=== PATIENT | male | born 1945 | race Caucasian/White ===

== ENCOUNTER 2021-02-07 11:09 | Inpatient (IN) | payer MEDICARE ==
[~2021-02-07] VITALS: Ht 172.7 cm; Wt 72.6 kg
[2021-02-07] MEDS ORDERED: DEXAMETHASONE SOD PHOS 10 MG/1 ML VIAL IV ONE (11:30)
[2021-02-07 12:56] LABS: BASOPHILS % 0.1 % (0.0-1.0); HEMATOCRIT 41.6 % (38.2-49.6); HEMOGLOBIN 14.1 g/dL (14.0-18.0); LYMPHOCYTES # (AUTO) 0.6 (1.0-3.2); LYMPHOCYTES % 6.8 % (18.0-39.1); MEAN CORPUSCULAR HEMOGLOBIN 30.7 pg (28-32); MEAN CORPUSCULAR HGB CONC 33.9 g/dL (31-35); MEAN CORPUSCULAR VOLUME 90.4 fL (81-99); MONOCYTES # (AUTO) 0.8 (0.2-0.8); MONOCYTES % 8.3 % (4.4-11.3); NEUTROPHILS # (AUTO) 7.7 (2.1-6.9); PLATELET COUNT 260 x10e3/uL (140-360); RED CELL DISTRIBUTION WIDTH 12.7 % (11.7-14.4)
[2021-02-07 13:19] LABS: ALBUMIN 2.5 g/dL (3.5-5.0); ALBUMIN/GLOBULIN RATIO 0.6 (0.8-2.0); ANION GAP 19.3 mmol/L (8-16); CALCIUM 8.5 mg/dL (8.4-10.2); CREATININE, SERUM 0.7 mg/dL (0.72-1.25); POTASSIUM 4.3 mmol/L (3.5-5.1)
[2021-02-07] MEDS ORDERED: METOPROLOL TART25 MG PO (16:01)
[2021-02-07] MEDS ORDERED: NOVOLOG100 UNIT/1 SC (16:01)
[2021-02-07] MEDS ORDERED: SYMBICORT 16010.2 GM INH (16:01)
[2021-02-07] MEDS ORDERED: MONTELUKAST SOD10 MG PO (16:01)
[2021-02-07] MEDS ORDERED: FLECAINIDE ACE100 MG PO (16:01)
[2021-02-07] MEDS ORDERED: ELIQUIS5 MG PO (16:01)
[2021-02-07] MEDS ORDERED: ATORVASTATIN CA20 MG PO (16:01)
[2021-02-07 16:18] VITALS: BP 160/71
[2021-02-07 16:20] VITALS: BP 160/71
[2021-02-07] MEDS ORDERED: ACETAMINOPHEN 325 MG TAB PO PRN (19:30)
[2021-02-07] MEDS: SODIUM CHLORIDE 0.9% 1000ML 1,000 ML IV SCH (19:30)
[2021-02-07] MEDS ORDERED: ONDANSETRON HCL INJ 2MG/ML 2ML 2 MG/ML VIAL IV PRN (19:30)
[2021-02-07] MEDS: APIXABAN 5 MG TABLET PO SCH (19:30)
[2021-02-07 20:00] VITALS: BP 153/69
[2021-02-07] MEDS: INSULIN LISPRO 100 UNIT/1 ML 3ML VIAL SQ SCH (21:00)
[2021-02-07] MEDS ORDERED: ENOXAPARIN SOD INJ 40 MG/0.4 ML SYR SC SCH (21:00)
[2021-02-07] MEDS: MONTELUKAST SODIUM 10 MG TAB PO SCH (21:00)
[2021-02-07] MEDS: FLECAINIDE ACETATE 100 MG TAB PO SCH (21:00)
[2021-02-07] MEDS: METOPROLOL TARTRATE 25 MG TAB PO SCH (21:00)
[2021-02-07] MEDS: ATORVASTATIN 20 MG TAB PO SCH (21:00)
[2021-02-07 22:23] VITALS: BP 153/69
[2021-02-08] VITALS (7 sets, daily range): BP systolic 112–152; BP diastolic 63–80
[2021-02-08] MEDS: SODIUM CHLORIDE 0.9% 1000ML 1,000 ML IV SCH (04:28)
[2021-02-08] MEDS: APIXABAN 5 MG TABLET PO SCH ×2 (08:16→19:30)
[2021-02-08] MEDS: DEXAMETHASONE 4 MG TAB PO SCH (08:52)
[2021-02-08] MEDS: INSULIN LISPRO 100 UNIT/1 ML 3ML VIAL SQ SCH ×4 (08:52→20:29)
[2021-02-08] MEDS: BUDESONIDE/FORMOTEROL 160/4.5MCG INHALER INH SCH (08:52)
[2021-02-08] MEDS: FLECAINIDE ACETATE 100 MG TAB PO SCH ×2 (08:53→20:29)
[2021-02-08] MEDS: METOPROLOL TARTRATE 25 MG TAB PO SCH ×2 (08:53→20:29)
[2021-02-08 11:18] LABS: BASOPHILS % 0.1 % (0.0-1.0); HEMOGLOBIN 12.9 g/dL (14.0-18.0); LYMPHOCYTES # (AUTO) 0.5 (1.0-3.2); LYMPHOCYTES % 4.3 % (18.0-39.1); MEAN CORPUSCULAR HEMOGLOBIN 30.1 pg (28-32); MEAN CORPUSCULAR HGB CONC 33.9 g/dL (31-35); MEAN CORPUSCULAR VOLUME 88.6 fL (81-99); MONOCYTES # (AUTO) 0.7 (0.2-0.8); MONOCYTES % 6.1 % (4.4-11.3); NEUTROPHILS # (AUTO) 9.8 (2.1-6.9); NEUTROPHILS % 88.7 % (38.7-80.0); PLATELET COUNT 272 x10e3/uL (140-360); RED BLOOD COUNT 4.29 x10e6/uL (4.3-5.7); RED CELL DISTRIBUTION WIDTH 12.6 % (11.7-14.4)
[2021-02-08] MEDS: DOXYCYCLINE HYCLATE TABLET 100 MG TAB PO SCH ×2 (11:19→17:17)
[2021-02-08 11:49] LABS: ANION GAP 14.8 mmol/L (8-16); CALCIUM 7.9 mg/dL (8.4-10.2); CREATININE, SERUM 0.68 mg/dL (0.72-1.25); MAGNESIUM 1.9 MG/DL (1.3-2.1); POTASSIUM 3.8 mmol/L (3.5-5.1)
[2021-02-08] MEDS ORDERED: REMDESIVIR 200MG 200 MG IV SCH (15:45)
[2021-02-08] MEDS ORDERED: REMDESIVIR 200MG 200 MG in SODIUM CHLORIDE 0.9% 100 ML IV ONE (16:30)
[2021-02-08] MEDS: ASCORBIC ACID 500 MG TAB PO SCH (17:17)
[2021-02-08] MEDS: ATORVASTATIN 20 MG TAB PO SCH (20:28)
[2021-02-08] MEDS: MONTELUKAST SODIUM 10 MG TAB PO SCH (20:29)
[2021-02-09] VITALS (9 sets, daily range): BP systolic 117–149; BP diastolic 66–90
[2021-02-09 06:31] LABS: BASOPHILS % 0.2 % (0.0-1.0); HEMOGLOBIN 13.1 g/dL (14.0-18.0); LYMPHOCYTES # (AUTO) 0.7 (1.0-3.2); LYMPHOCYTES % 5.3 % (18.0-39.1); MEAN CORPUSCULAR HGB CONC 33.6 g/dL (31-35); MEAN CORPUSCULAR VOLUME 89.4 fL (81-99); MONOCYTES # (AUTO) 0.9 (0.2-0.8); MONOCYTES % 7.1 % (4.4-11.3); NEUTROPHILS % 86.8 % (38.7-80.0); PLATELET COUNT 284 x10e3/uL (140-360); RED BLOOD COUNT 4.36 x10e6/uL (4.3-5.7); RED CELL DISTRIBUTION WIDTH 12.4 % (11.7-14.4)
[2021-02-09 06:58] LABS: ANION GAP 13.8 mmol/L (8-16); CALCIUM 7.9 mg/dL (8.4-10.2); CREATININE, SERUM 0.66 mg/dL (0.72-1.25); POTASSIUM 3.8 mmol/L (3.5-5.1)
[2021-02-09] MEDS: APIXABAN 5 MG TABLET PO SCH ×2 (08:33→19:30)
[2021-02-09] MEDS: INSULIN LISPRO 100 UNIT/1 ML 3ML VIAL SQ SCH ×4 (08:34→21:00)
[2021-02-09] MEDS: BUDESONIDE/FORMOTEROL 160/4.5MCG INHALER INH SCH (08:36)
[2021-02-09] MEDS: DEXAMETHASONE 4 MG TAB PO SCH (08:36)
[2021-02-09] MEDS: ZINC SULFATE 50 MG CAP PO SCH (08:37)
[2021-02-09] MEDS: DOXYCYCLINE HYCLATE TABLET 100 MG TAB PO SCH ×2 (08:37→18:15)
[2021-02-09] MEDS: METOPROLOL TARTRATE 25 MG TAB PO SCH ×2 (08:37→20:28)
[2021-02-09] MEDS: ASCORBIC ACID 500 MG TAB PO SCH ×2 (08:37→18:15)
[2021-02-09] MEDS: FLECAINIDE ACETATE 100 MG TAB PO SCH ×2 (08:37→20:29)
[2021-02-09] MEDS: INSULIN GLARGINE 100 UNITS/ML VIAL SQ SCH (12:02)
[2021-02-09] MEDS: REMDESIVIR IV SCH (14:13)
[2021-02-09] MEDS: SODIUM CHLORIDE 0.9% IV SCH (14:13)
[2021-02-09] MEDS: ATORVASTATIN 20 MG TAB PO SCH (20:13)
[2021-02-09] MEDS: MONTELUKAST SODIUM 10 MG TAB PO SCH (20:13)
[2021-02-10] VITALS (7 sets, daily range): BP systolic 119–152; BP diastolic 59–74
[2021-02-10 05:01] LABS: HEMATOCRIT 37.3 % (38.2-49.6); HEMOGLOBIN 13.3 g/dL (14.0-18.0); LYMPHOCYTES # (AUTO) 0.7 (1.0-3.2); LYMPHOCYTES % 5.4 % (18.0-39.1); MEAN CORPUSCULAR HEMOGLOBIN 31.1 pg (28-32); MEAN CORPUSCULAR HGB CONC 35.7 g/dL (31-35); MEAN CORPUSCULAR VOLUME 87.1 fL (81-99); MONOCYTES # (AUTO) 1.1 (0.2-0.8); MONOCYTES % 9.1 % (4.4-11.3); NEUTROPHILS # (AUTO) 10.3 (2.1-6.9); NEUTROPHILS % 84.9 % (38.7-80.0); PLATELET COUNT 267 x10e3/uL (140-360); RED BLOOD COUNT 4.28 x10e6/uL (4.3-5.7); RED CELL DISTRIBUTION WIDTH 12.5 % (11.7-14.4)
[2021-02-10 05:14] LABS: ANION GAP 12.6 mmol/L (8-16); CALCIUM 7.8 mg/dL (8.4-10.2); CREATININE, SERUM 0.71 mg/dL (0.72-1.25); POTASSIUM 3.6 mmol/L (3.5-5.1)
[2021-02-10 07:07] LABS: FERRITIN 1855.57 ng/mL (21.81-274.66)
[2021-02-10] MEDS: DOXYCYCLINE HYCLATE TABLET 100 MG TAB PO SCH ×2 (09:40→16:35)
[2021-02-10] MEDS: ZINC SULFATE 50 MG CAP PO SCH (09:40)
[2021-02-10] MEDS: APIXABAN 5 MG TABLET PO SCH ×2 (09:40→18:37)
[2021-02-10] MEDS: BUDESONIDE/FORMOTEROL 160/4.5MCG INHALER INH SCH (09:40)
[2021-02-10] MEDS: ASCORBIC ACID 500 MG TAB PO SCH ×2 (09:40→16:35)
[2021-02-10] MEDS: DEXAMETHASONE 4 MG TAB PO SCH (09:40)
[2021-02-10] MEDS: FLECAINIDE ACETATE 100 MG TAB PO SCH ×2 (10:00→21:00)
[2021-02-10] MEDS: INSULIN LISPRO 100 UNIT/1 ML 3ML VIAL SQ SCH ×4 (10:08→21:00)
[2021-02-10] MEDS: INSULIN GLARGINE 100 UNITS/ML VIAL SQ SCH (10:08)
[2021-02-10] MEDS: METOPROLOL TARTRATE 25 MG TAB PO SCH ×2 (10:25→21:00)
[2021-02-10] MEDS ORDERED: SODIUM CHLORIDE 0.9% 100 ML ONE (13:45)
[2021-02-10] MEDS: SODIUM CHLORIDE 0.9% IV SCH (14:02)
[2021-02-10] MEDS: REMDESIVIR IV SCH (14:02)
[2021-02-10] MEDS: VANCOMYCIN HCL 125 MG CAPSULE PO SCH (14:50)
[2021-02-10] MEDS: MONTELUKAST SODIUM 10 MG TAB PO SCH (21:00)
[2021-02-10] MEDS: ATORVASTATIN 20 MG TAB PO SCH (21:00)
[2021-02-11 01:27] VITALS: BP 100/69
[2021-02-11 04:54] LABS: BASOPHILS % 0.2 % (0.0-1.0); HEMATOCRIT 41.7 % (38.2-49.6); LYMPHOCYTES # (AUTO) 0.9 (1.0-3.2); LYMPHOCYTES % 8.8 % (18.0-39.1); MEAN CORPUSCULAR HGB CONC 33.6 g/dL (31-35); MEAN CORPUSCULAR VOLUME 89.3 fL (81-99); NEUTROPHILS # (AUTO) 8.3 (2.1-6.9); NEUTROPHILS % 80.1 % (38.7-80.0); PLATELET COUNT 270 x10e3/uL (140-360); RED BLOOD COUNT 4.67 x10e6/uL (4.3-5.7); RED CELL DISTRIBUTION WIDTH 12.5 % (11.7-14.4)
[2021-02-11 05:15] LABS: ANION GAP 13.6 mmol/L (8-16); CREATININE, SERUM 0.74 mg/dL (0.72-1.25); POTASSIUM 3.6 mmol/L (3.5-5.1)
[2021-02-11 05:18] VITALS: BP 105/69
[2021-02-11] MEDS: VANCOMYCIN HCL 125 MG CAPSULE PO SCH ×4 (06:00→17:45)
[2021-02-11 07:06] VITALS: BP 105/69
[2021-02-11] MEDS: APIXABAN 5 MG TABLET PO SCH ×2 (08:30→20:30)
[2021-02-11] MEDS: BUDESONIDE/FORMOTEROL 160/4.5MCG INHALER INH SCH (09:21)
[2021-02-11] MEDS: DEXAMETHASONE 4 MG TAB PO SCH (09:21)
[2021-02-11] MEDS: FLECAINIDE ACETATE 100 MG TAB PO SCH ×2 (09:22→20:45)
[2021-02-11] MEDS: METOPROLOL TARTRATE 25 MG TAB PO SCH ×2 (09:22→20:45)
[2021-02-11] MEDS: ZINC SULFATE 50 MG CAP PO SCH (09:23)
[2021-02-11] MEDS: ASCORBIC ACID 500 MG TAB PO SCH ×2 (09:23→17:45)
[2021-02-11] MEDS: INSULIN GLARGINE 100 UNITS/ML VIAL SQ SCH (09:44)
[2021-02-11] MEDS: INSULIN LISPRO 100 UNIT/1 ML 3ML VIAL SQ SCH ×4 (09:44→20:45)
[2021-02-11] MEDS ORDERED: SODIUM CHLORIDE 0.9% 100 ML ONE ×2 (12:59→13:29)
[2021-02-11] MEDS: SODIUM CHLORIDE 0.9% IV SCH (13:26)
[2021-02-11] MEDS: REMDESIVIR IV SCH (13:26)
[2021-02-11 20:00] VITALS: BP 106/53
[2021-02-11 20:45] VITALS: BP 106/53
[2021-02-11] MEDS: ATORVASTATIN 20 MG TAB PO SCH (20:45)
[2021-02-11] MEDS: MONTELUKAST SODIUM 10 MG TAB PO SCH (20:45)
[2021-02-12] VITALS (8 sets, daily range): BP systolic 92–139; BP diastolic 61–92
[2021-02-12] MEDS: VANCOMYCIN HCL 125 MG CAPSULE PO SCH ×4 (00:18→17:54)
[2021-02-12 06:21] LABS: ANION GAP 12.6 mmol/L (8-16); CALCIUM 7.8 mg/dL (8.4-10.2); CREATININE, SERUM 0.6 mg/dL (0.72-1.25); MAGNESIUM 1.7 MG/DL (1.3-2.1); POTASSIUM 3.6 mmol/L (3.5-5.1)
[2021-02-12] MEDS: APIXABAN 5 MG TABLET PO SCH ×2 (08:30→18:31)
[2021-02-12] MEDS: ZINC SULFATE 50 MG CAP PO SCH (09:02)
[2021-02-12] MEDS: DEXAMETHASONE 4 MG TAB PO SCH (09:02)
[2021-02-12] MEDS: BUDESONIDE/FORMOTEROL 160/4.5MCG INHALER INH SCH (09:02)
[2021-02-12] MEDS: ASCORBIC ACID 500 MG TAB PO SCH ×2 (09:02→16:17)
[2021-02-12] MEDS: METOPROLOL TARTRATE 25 MG TAB PO SCH ×2 (09:03→21:18)
[2021-02-12] MEDS: FLECAINIDE ACETATE 100 MG TAB PO SCH ×2 (09:03→21:18)
[2021-02-12] MEDS: INSULIN GLARGINE 100 UNITS/ML VIAL SQ SCH (10:04)
[2021-02-12] MEDS: INSULIN LISPRO 100 UNIT/1 ML 3ML VIAL SQ SCH ×4 (10:04→20:58)
[2021-02-12] MEDS ORDERED: REMDESIVIR 100MG 100 MG IV ONE (12:43)
[2021-02-12] MEDS: SODIUM CHLORIDE 0.9% IV SCH (13:44)
[2021-02-12] MEDS: REMDESIVIR IV SCH (13:44)
[2021-02-12] MEDS: MONTELUKAST SODIUM 10 MG TAB PO SCH (20:57)
[2021-02-12] MEDS: ATORVASTATIN 20 MG TAB PO SCH (20:57)
[2021-02-13] MEDS: VANCOMYCIN HCL 125 MG CAPSULE PO SCH ×5 (00:26→23:19)
[2021-02-13 01:38] VITALS: BP 128/64
[2021-02-13 06:01] VITALS: BP 138/75
[2021-02-13 07:11] VITALS: BP 138/75
[2021-02-13 08:42] VITALS: BP 99/86
[2021-02-13] MEDS: BUDESONIDE/FORMOTEROL 160/4.5MCG INHALER INH SCH (08:51)
[2021-02-13] MEDS: APIXABAN 5 MG TABLET PO SCH ×2 (08:51→18:30)
[2021-02-13] MEDS: DEXAMETHASONE 4 MG TAB PO SCH (08:51)
[2021-02-13] MEDS: FLECAINIDE ACETATE 100 MG TAB PO SCH ×2 (08:51→20:25)
[2021-02-13] MEDS: ASCORBIC ACID 500 MG TAB PO SCH ×2 (08:52→16:25)
[2021-02-13] MEDS: ZINC SULFATE 50 MG CAP PO SCH (08:52)
[2021-02-13] MEDS: METOPROLOL TARTRATE 25 MG TAB PO SCH ×2 (08:52→21:24)
[2021-02-13] MEDS: INSULIN GLARGINE 100 UNITS/ML VIAL SQ SCH (09:18)
[2021-02-13] MEDS: INSULIN LISPRO 100 UNIT/1 ML 3ML VIAL SQ SCH ×4 (09:18→20:25)
[2021-02-13 19:08] VITALS: BP 124/69
[2021-02-13] MEDS: MONTELUKAST SODIUM 10 MG TAB PO SCH (20:24)
[2021-02-13] MEDS: ATORVASTATIN 20 MG TAB PO SCH (20:24)
[2021-02-13 21:00] VITALS: BP 124/69
[2021-02-14] VITALS (8 sets, daily range): BP systolic 113–131; BP diastolic 55–80
[2021-02-14] MEDS: VANCOMYCIN HCL 125 MG CAPSULE PO SCH ×4 (06:05→23:55)
[2021-02-14] MEDS: INSULIN LISPRO 100 UNIT/1 ML 3ML VIAL SQ SCH ×4 (07:30→21:45)
[2021-02-14] MEDS: APIXABAN 5 MG TABLET PO SCH ×2 (08:22→21:26)
[2021-02-14] MEDS: METOPROLOL TARTRATE 25 MG TAB PO SCH ×2 (08:23→21:43)
[2021-02-14] MEDS: DEXAMETHASONE 4 MG TAB PO SCH (08:23)
[2021-02-14] MEDS: FLECAINIDE ACETATE 100 MG TAB PO SCH ×2 (08:23→21:26)
[2021-02-14] MEDS: ASCORBIC ACID 500 MG TAB PO SCH ×2 (08:24→17:27)
[2021-02-14] MEDS: ZINC SULFATE 50 MG CAP PO SCH (08:24)
[2021-02-14] MEDS: INSULIN GLARGINE 100 UNITS/ML VIAL SQ SCH (09:21)
[2021-02-14] MEDS: ATORVASTATIN 20 MG TAB PO SCH (21:26)
[2021-02-14] MEDS: MONTELUKAST SODIUM 10 MG TAB PO SCH (21:26)
[2021-02-14] MEDS: BUDESONIDE/FORMOTEROL 160/4.5MCG INHALER INH SCH (21:43)
[2021-02-15] VITALS (8 sets, daily range): BP systolic 114–142; BP diastolic 60–78
[2021-02-15] MEDS: VANCOMYCIN HCL 125 MG CAPSULE PO SCH ×4 (05:20→23:37)
[2021-02-15] MEDS: APIXABAN 5 MG TABLET PO SCH ×2 (08:25→19:53)
[2021-02-15] MEDS: DEXAMETHASONE 4 MG TAB PO SCH (08:25)
[2021-02-15] MEDS: METOPROLOL TARTRATE 25 MG TAB PO SCH ×2 (08:26→21:10)
[2021-02-15] MEDS: FLECAINIDE ACETATE 100 MG TAB PO SCH ×2 (08:26→19:53)
[2021-02-15] MEDS: ASCORBIC ACID 500 MG TAB PO SCH ×2 (08:27→17:30)
[2021-02-15] MEDS: ZINC SULFATE 50 MG CAP PO SCH (08:27)
[2021-02-15] MEDS: BUDESONIDE/FORMOTEROL 160/4.5MCG INHALER INH SCH (09:00)
[2021-02-15] MEDS: INSULIN GLARGINE 100 UNITS/ML VIAL SQ SCH (09:29)
[2021-02-15] MEDS: INSULIN LISPRO 100 UNIT/1 ML 3ML VIAL SQ SCH ×4 (09:29→21:10)
[2021-02-15] MEDS: MONTELUKAST SODIUM 10 MG TAB PO SCH (19:53)
[2021-02-15] MEDS: ATORVASTATIN 20 MG TAB PO SCH (19:53)
[2021-02-16] VITALS: BP 133/67
[2021-02-16 04:00] VITALS: BP 136/65
[2021-02-16] MEDS: VANCOMYCIN HCL 125 MG CAPSULE PO SCH ×2 (05:08→12:07)
[2021-02-16] MEDS: BUDESONIDE/FORMOTEROL 160/4.5MCG INHALER INH SCH (09:00)
[2021-02-16] MEDS ORDERED: INSULIN GLARGINE 100 UNITS/ML VIAL SQ SCH (09:00)
[2021-02-16] MEDS: APIXABAN 5 MG TABLET PO SCH (09:08)
[2021-02-16] MEDS: METOPROLOL TARTRATE 25 MG TAB PO SCH (09:09)
[2021-02-16] MEDS: ZINC SULFATE 50 MG CAP PO SCH (09:09)
[2021-02-16] MEDS: ASCORBIC ACID 500 MG TAB PO SCH (09:09)
[2021-02-16] MEDS: INSULIN LISPRO 100 UNIT/1 ML 3ML VIAL SQ SCH ×2 (09:09→12:09)
[2021-02-16] MEDS: FLECAINIDE ACETATE 100 MG TAB PO SCH (09:09)
[2021-02-16] MEDS: DEXAMETHASONE 4 MG TAB PO SCH (09:09)
[2021-02-16 09:22] VITALS: BP 134/70
[2021-02-16 11:44] VITALS: BP 107/71
[2021-02-16] MEDS ORDERED: METOPROLOL TART25 MG PO (12:57)
[2021-02-16] MEDS ORDERED: VANCOMYCIN HCL125 MG PO (12:57)
[2021-02-16] MEDS ORDERED: Insulin Glargine SQ (12:57)
[2021-02-16] MEDS ORDERED: ONDANSETRON HCL 4 MG ORAL DISINTEGRATING TAB PO PRN (13:30)
== END 2021-02-16 16:29 | disposition home or self-care (01) | DRG 177 ==
LOC: ER 11:12 → ERHOLD 14:00 → MED/SURG3 15:26 → IMCU 02-09 21:53
PROVIDERS: ADMIT Internal Medicine; ATTEND Internal Medicine
PROC: XW033E5 Introduction of Remdesivir Anti-infective into Peripheral Vein, Percutaneous Approach, New Technology Group 5 (ICD-10-PCS; principal; 2021-02-08)
PROC: 5A0935A Assistance with Respiratory Ventilation, Less than 24 Consecutive Hours, High Flow/Velocity Cannula (ICD-10-PCS; 2021-02-09)
PROC: 8E0ZXY6 Isolation (ICD-10-PCS; 2021-02-09)
DX: U07.1 COVID-19 (principal); J12.82 Pneumonia due to coronavirus disease 2019; J96.01 Acute respiratory failure with hypoxia; A08.39 Other viral enteritis; A04.72 Enterocolitis due to Clostridium difficile, not specified as recurrent; I48.91 Unspecified atrial fibrillation; Z79.01 Long term (current) use of anticoagulants; Z95.0 Presence of cardiac pacemaker; E11.65 Type 2 diabetes mellitus with hyperglycemia; I25.10 Atherosclerotic heart disease of native coronary artery without angina pectoris; Z95.1 Presence of aortocoronary bypass graft; I87.2 Venous insufficiency (chronic) (peripheral); I73.9 Peripheral vascular disease, unspecified; Z20.822 Contact with and (suspected) exposure to COVID-19
CPT/HCPCS: 36415; 71045; 80048; 80053; 82728; 82948; 83615; 83735; 85025; 86140; 87493; 93005; 96360; 96361; 96365; 96372; 99251; 99283; J1100; J1650; J1815; J7030; J7050; U0002